=== PATIENT | female | born 1970 | race Caucasian/White ===

== ENCOUNTER 2018-10-18 05:45 | Day surgery (SDC) | payer OTHER ==
[~2018-10-18 05:45] MED LIST: ACETAMINOOPHEN-1 TAB PO; ANAPROX275 MG PO; MYLICON 125MG125 MG PO; PRILOSEC40 MG PO
== END 2018-10-18 11:48 | disposition home or self-care (01) ==
LOC: CIR.AMB 05:45 → ADM 10-20 15:00 → CIR.AMB 10-20 15:00
DX: N65.1 Disproportion of reconstructed breast (principal); Z90.13 Acquired absence of bilateral breasts and nipples

== ENCOUNTER 2018-11-08 07:01 | Day surgery (SDC) | payer OTHER | END 2018-11-08 12:10 | disposition home or self-care (01) | LOC: AMB-ENDOS 07:01 → CIR.AMB 14:30 | DX: K59.09 Other constipation (principal); Z12.11 Encounter for screening for malignant neoplasm of colon ==

== ENCOUNTER 2018-11-16 07:32 | Inpatient (IN) | payer OTHER ==
[~2018-11-16] VITALS: Ht 162.6 cm; Wt 77.1 kg
--- NOTE | 2018-11-16 07:38 | NUR ---
PACIENTE ALERTA Y ORIENTADA X3. REFIERE DESDE VANNESA A LAS 6:00PM COMENZO CON DOLOR DE PECHO, MAREOS Y FALTA DE AIRE AL CAMINAR. PACIENTE AL MOMENTO CONTINUA CON DOLOR DE PECHO Y MAREOS. SE REALIZA EKG Y SE PRESENTO A KATHARINE. RENTA LA CUAL REFIERE PACIENTE SERA UBICADA EN UNIDAD DE DOLOR DE PECHO. SE UBICA EN MARIAMA #[id number] CONECTADA A MONITOR CARDIACO Y OXIMETRIA DE PULSO. SE PRESENTO A MIS. NIKKI.
--- NOTE | 2018-11-16 08:34 | NUR ---
EVALUADA POR LA SE ORIENTA SOBRE TRATAMIENTO MEDICO Y LA UNIDAD CONECTADA A MONITOR CARDIACO, ALERTA, ORIENTADA POR LEANNE. SE LE EXTRAEN MUESTRAS DE TOMMY Y SE ENVIAN AL LABORATORIO. NO BOLANOS PRESENTADO DOLOR DE PECHO AL MOMENTO. SE MANTIENE EN OBSERVACION.
--- NOTE | 2018-11-16 09:52 | NUR ---
SE TRANSFIERE PTE AL DEPARTAMENTO DE RX A REALIZARLE CT DE SHARLA EN [place] DE BARKA ACOMPANADA POR ESCOLTA DE TURNO.PTE EN CONDICION ESTABLE.
--- NOTE | 2018-11-16 15:20 | NUR ---
SE RECIBE PACIENTE ALERTA Y ORIENTADA EN CAMA CON BARRANDAS ELEVADAS POR LAZARO SEGURIDAD. PACIENTE CONECTADA A MONITOR CARDIACO Y OXIMETRIA DE PULSO. CON VENOPUNCION PATENTE VAUGHN DE AJIT AY ERRITEMA EN ANTEBRAZO JENNIFFER. PACIENTE CONSULTADA CON LA DRA. DOOLEY. PENDIENTE OCULT BLOOD. SE JANELLE SIGNOS VITALES A PACIENTE ESTABLES AL MOMENTO. SE CHANG A PACIENTE EN CAMA BAJO OBSERVACION POR CAMBIOS EN LAZARO CONDICION.
[2018-11-20] MEDS ORDERED: PANTOPRAZOLE SO40 MG PO (13:54)
== END 2018-11-20 14:40 | disposition home or self-care (01) | DRG 379 ==
LOC: ER 07:32 → MEDI 15:41
PROVIDERS: ADMIT Internal Medicine
PROC: 30233N1 Transfusion of Nonautologous Red Blood Cells into Peripheral Vein, Percutaneous Approach (ICD-10-PCS; 2018-11-16)
PROC: B020ZZZ Computerized Tomography (CT Scan) of Brain (ICD-10-PCS; 2018-11-16)
PROC: 0DB78ZX Excision of Stomach, Pylorus, Via Natural or Artificial Opening Endoscopic, Diagnostic (ICD-10-PCS; principal; 2018-11-18)
DX: K29.61 Other gastritis with bleeding (principal); D50.0 Iron deficiency anemia secondary to blood loss (chronic); K26.4 Chronic or unspecified duodenal ulcer with hemorrhage; K25.4 Chronic or unspecified gastric ulcer with hemorrhage

== ENCOUNTER 2020-05-31 12:18 | Emergency (ER) | payer OTHER ==
[~2020-05-31] VITALS: Ht 162.6 cm; Wt 84.4 kg
[~2020-05-31 12:18] MED LIST changes: +PANTOPRAZOLE SO40 MG PO
[2020-05-31] MEDS ORDERED: ORPHENADRINE C100 MG PO (16:59)
[2020-05-31] MEDS ORDERED: KETO10TA2 PO (16:59)
== END 2020-05-31 18:30 | disposition home or self-care (01) ==
LOC: ER 12:18
DX: M54.2 Cervicalgia (principal); M25.512 Pain in left shoulder; M62.838 Other muscle spasm

== ENCOUNTER 2021-03-15 16:16 | Emergency (ER) | payer OTHER ==
[~2021-03-15] VITALS: Ht 162.6 cm; Wt 79.4 kg
[~2021-03-15 16:16] MED LIST changes: +KETO10TA2 PO; +ORPHENADRINE C100 MG PO
[2021-03-15] MEDS ORDERED: CLOTRIMAZOLE-BE30 ML TOP (19:44)
[2021-03-15] MEDS ORDERED: DICLOFENAC SODI75 MG PO (19:44)
[2021-03-15] MEDS ORDERED: PEPCID AC20 MG PO (19:44)
== END 2021-03-15 20:00 | disposition home or self-care (01) ==
LOC: ER 16:16
DX: R07.89 Other chest pain (principal); M94.0 Chondrocostal junction syndrome [Tietze]

== ENCOUNTER 2021-11-05 09:22 | Emergency (ER) | payer OTHER ==
[~2021-11-05] VITALS: Ht 162.6 cm; Wt 81.6 kg
[~2021-11-05 09:22] MED LIST changes: +CLOTRIMAZOLE-BE30 ML TOP; +DICLOFENAC SODI75 MG PO; +PEPCID AC20 MG PO
[2021-11-05] MEDS ORDERED: CIPRO500 MG PO (15:54)
== END 2021-11-05 16:38 | disposition home or self-care (01) ==
LOC: ER 09:22
DX: N39.0 Urinary tract infection, site not specified (principal)